=== PATIENT | male | born 1970 | race Caucasian/White ===

== ENCOUNTER 2018-08-21 17:27 | Emergency (ER) | payer SELFPAY ==
[2018-08-21 17:28] VITALS: BP 142/103; PULSE 99; RESP 18; TEMP 36.3; O2SAT 99; BMI 25.7
--- NOTE | 2018-08-21 18:24 | ED.VISSUMM ---
- ER Visit Summary Date of Service: 08/21/18 Chief Complaint: Requesting detox for alcohol abuse History of Present Illness: The patient is a 48 M history of alcoholism. Patient states he typically drinks 16 beers a day. He has been drinking within the last hour. Physical Examination: Vital signs are stable afebrile. Initial blood pressure 142/103. He does not look septic toxic. He is in no distress. He is lying in bed comfortably. HEENT exam unremarkable. Neck nontender no lymphadenopathy. Lungs clear to auscultation bilaterally. Heart rate and rhythm no murmur. Rate in the 90s. Abdomen soft and nontender. Normal bowel sounds. No peritoneal signs. Moving all 4 extremities. Neurovascular intact. Nontender. No edema. Neurologically he is intoxicated but awake. He is alert. He is answering questions. He is following commands. He is cooperative. 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 He has normal dorsi plantarflexion. He can take his fingertips and touch his nose. Back nontender. Test Results: None Emergency Department Course and Treatment: I explained to the patient and called his friend that he gave me his number sofiya Perdomo. They both understand and unfortunately there are rules to be admitted to detox and 1 of those is going to be going through acute withdrawal. Patient's drank in the last hour. His CYWA score is currently 0. Treatment Plan: Discharged home. His friend knows to try to keep him from drinking. And when he is going through withdrawal bring him back and we will be happy to get him admitted for detox. There is no one currently available transactional attorney for [facility]. Disposition: Discharge Impression: Acute alcohol abuse Requesting detox This note was generated with [employer] dictation software. It may contain incorrect words, spelling, and punctuation that were not noted in review of the chart prior to signing ED Disposition - Plan for ED Patient: Chief Complaint: ETOH Intox
--- NOTE | 2018-08-21 18:28 | ED.DCSUM_ITS ---
- ER Visit Summary Date of Service: 08/21/18 Chief Complaint: Requesting detox for alcohol abuse History of Present Illness: The patient is a 48 M history of alcoholism. Patient states he typically drinks 16 beers a day. He has been drinking within the last hour. Physical Examination: Vital signs are stable afebrile. Initial blood pressure 142/103. He does not look septic toxic. He is in no distress. He is lying in bed comfortably. HEENT exam unremarkable. Neck nontender no lymphadenopathy. Lungs clear to auscultation bilaterally. Heart rate and rhythm no murmur. Rate in the 90s. Abdomen soft and nontender. Normal bowel sounds. No peritoneal signs. Moving all 4 extremities. Neurovascular intact. Nontender. No edema. Neurologically he is intoxicated but awake. He is alert. He is answering questions. He is following commands. He is cooperative. 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 He has normal dorsi plantarflexion. He can take his fingertips and touch his nose. Back nontender. Test Results: None Emergency Department Course and Treatment: I explained to the patient and called his friend that he gave me his number sofiya Perdomo. They both understand and unfortunately there are rules to be admitted to detox and 1 of those is going to be going through acute withdrawal. Patient's drank in the last hour. His CYWA score is currently 0. Treatment Plan: Discharged home. His friend knows to try to keep him from drinking. And when he is going through withdrawal bring him back and we will be happy to get him admitted for detox. There is no one currently available front office developer for [facility]. Disposition: Discharge Impression: Acute alcohol abuse Requesting detox This note was generated with [employer] dictation software. It may contain incorrect words, spelling, and punctuation that were not noted in review of the chart prior to signing ED Disposition - Plan for ED Patient: Chief Complaint: ETOH Intox
--- NOTE | 2018-08-21 18:28 | ED.DEP ---
ED Disposition - Plan for ED Patient: Disposition: Home or Assisted Living Chief Complaint: ETOH Intox Instructions: ED Alcohol Abuse Additional Instructions: Do not drink tonight or tomorrow. You start going through withdrawal return to the ER. We will do having possible at that time to get you admitted for detox. Unfortunately at this time you do not qualify because you drank in the last hour.
[2018-08-21 18:42] VITALS: BP 134/78; PULSE 73; RESP 15; O2SAT 99
== END 2018-08-21 18:55 | disposition home or self-care (01) ==
LOC: ED 18:50
PROVIDERS: Emergency Provider Emergency Medicine
DX: F10.229 Alcohol dependence with intoxication, unspecified (principal); Z72.0 Tobacco use
CPT/HCPCS: 99283